=== PATIENT | male | born 1955 | race Caucasian/White ===

== ENCOUNTER 2020-10-06 18:01 | Inpatient (IN) ==
--- NOTE | 2020-10-06 18:37 | Emergency Department Note ---
HPI General Chief complaint: Weakness Stated complaint: WEAKNESS Time Seen by Provider: 10/06/20 18:33 Source: patient and RN notes reviewed Mode of arrival: EMS Limitations: no limitations History of Present Illness HPI Narrative: Narrative: Presents to room T2 for evaluation of hypotension, chills and neutropenia. The patient has a history of end-stage renal disease and diabetes. He reports that 3 days ago he developed chills with generalized weakness nausea and diarrhea during dialysis. He states throughout the weekend his symptoms of actually improved somewhat but when he presented for evaluation today an outside facility he was noted to be hypotensive with a reported blood pressure of 70/40. The patient was noted to be neutropenic with a white blood cell count of 1.4 and an ANC of 780. The patient was also noted to have an elevated lactic at 2.7. The patient was treated with IV fluid bolus, blood cultures and cefepime and vancomycin. Chest x-ray was obtained which is reported to be normal. The patient has not been able to provide a urine sample yet. The patient was transferred here for higher level of care. Hospitalist had requested the patient be evaluated in the emergency department prior to admission. Related Data Allergies Allergy/AdvReac Type Severity Reaction Status Date / Time codeine AdvReac Intermediate Vomiting Verified 10/06/20 18:05 hydrocodone AdvReac Intermediate Vomiting Verified 10/06/20 18:05 Review of Systems ROS ROS Narrative: Narrative: All systems ED: reviewed and negative except as stated. FORMERLY [facility], 1928–1983 Narrative Patient History Narrative: Narrative: Medical/Surgical/Family History All Active Problems (Updated 10/06/20 @ 18:43 by Saleem Chau MD) Sepsis (Acute) Neutropenia (Acute) Acute hypotension (Acute) Social History Smoking Status: Never smoker Exam Narrative Narrative: Narrative: General Limitations: no limitations General appearance: Present alert and in no apparent distress Head Head: Present atraumatic, normocephalic and normal inspection Eye Eye: Present normal appearance and EOMI; Absent conjunctival injection ENT ENT: Present normal exam and mucous membranes moist Neck Neck: Present normal inspection and trachea midline Respiratory Respiratory: Present normal lung sounds bilaterally; Absent respiratory distress Cardiovascular Cardiovascular: Present regular rate, normal rhythm and normal heart sounds Adbominal Abdominal: Present soft; Absent distention, tenderness, guarding and rebound Extremities Extremities: Present normal inspection; Absent tenderness Back Back: Present normal inspection; Absent tenderness Neurological Neurological: Present alert, oriented X3 and CN II-XII intact; Absent motor sensory deficit Psychiatric Psychiatric: Present normal affect and normal mood Skin Skin: Present warm (WNL) and dry; Absent rash Course Vital Signs Vital signs: Vital Signs Temperature 98.5 F 10/06/20 18:01 Pulse Rate 64 10/06/20 18:01 Respiratory Rate 18 10/06/20 18:01 Pulse Oximetry (%) 99 10/06/20 18:01 Temperature 98.5 F 10/06/20 18:01 Pulse Rate 64 10/06/20 18:01 Respiratory Rate 18 10/06/20 18:01 Pulse Oximetry (%) 99 10/06/20 18:01 [facility] MDM Narrative Medical decision making narrative: Narrative:The patient arrives in the emergency department in no acute distress. His exam is benign. His vital signs have normalized and blood pressure specifically has improved. He is in no acute distress at the time of my evaluation and is denying any complaints. I discussed the case with the admitting hospitalist. Will attempt to obtain a urinalysis. Hospitalist accepts the patient for admission. He has requested I order a CT scan without contrast of the chest. Medical Records Medical records reviewed: Yes I reviewed the patient's medical records. Lab Data Lab results reviewed: Yes I reviewed the patient's lab results. Rhythm Strip Data Rhythm Strip Rate: 65 Interpretation: normal sinus Pulse Oximetry Data Pulse Ox %: 99 Interpretation: normal Discharge Plan Patient/Caregiver Discharge Instructions Pt seen by FOOD ORDER DELIVERY RUNNER/PA only: No Clinical Impression: Sepsis, Neutropenia, Acute hypotension Patient Disposition: Xfer As Inpt ([facility]) Follow up with: Nemesio Tamayo [Primary Care Provider] -
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
--- NOTE | 2020-10-06 21:54 | Internal Med History&Physical ---
HPI History of Present Illness Patient information: Note initiated : 10/06/20 at 9:47 pm Service Date, if different from initiated Date: [] Patient: Singh Singh a 65 y/o M admitted on for weakness. Chief Complaint: Weakness, chills, nausea vomiting diarrhea History of present illness: Mr. Singh is a 65 year old M who lives at [facility] and carries a complex past medical history of CABG/type 1 diabetes/history of pleural and pericardial effusion/ESRD on HD currently on transplant list who presented to [facility] with 4 days onset of fever chills, nausea vomiting and diarrhea. Symptoms started immediately after dialysis on Tuesday with shaking chills that continued through Tuesday and Tuesday with profound weakness/fatigue to the point patient could barely get out of bed. Initial work-up at [place] was consistent with neutropenia of 1.8 along with systolics 70/40. Patient was started on antibiotic coverage after cultures were drawn. Crystalloids were administered. He also missed his dialysis today due to profound weakness and above symptoms. Following crystalloids patient's blood pressure improved to 106 x 45. Case was discussed with nephrology and recommended transfer to tertiary center. Patient was then transferred to [facility] ER. He underwent chest abdomen pelvis imaging and received crystalloids. Patient started feeling a lot better and remained lucid afebrile. No further episode of diarrhea. Covid test negative. Blood cultures were drawn Hospitalist service was consulted for admission At the time of my evaluation patient is alert and oriented. He denies fever, rash, fistula site pain, lightheadedness dizziness. He endorses to weakness/diarrhea and occasional shaking chills starting Tuesday following dialysis. However denies fall or seizure, cough, productive sputum. He missed dialysis today due to worsening weakness. He endorses of diarrhea x2 days Review of systems 10 point review system was performed and is negative except for 1 discussed above . Past medical history CAD last admission September 2019 CABG. cardiac cath in 2017 History of peritonitis 2018 T1DM Diabetic retinopathy History of CVA History of mild depression Hypothyroidism HLD Severe obstructive sleep apnea not using CPAP due to tolerance issue ESRD on HD, previously on peritoneal dialysis Family history CKD mother CAD/prostate cancer father Family history of HTN and diabetes Sister asthma Social history Quit tobacco 2016 Lives in [facility] All Active Problems Sepsis (Acute) Neutropenia (Acute) Acute hypotension (Acute) MEDS/ALLERGIES Home Medications and Allergies Home Medications Medication Instructions Recorded Confirmed Type Auryxia 4 g PO DAILY 10/07/20 10/07/20 History B complex-vitamin C-folic acid 1 tab PO QDAY 10/07/20 10/07/20 History [Folbee Plus] Novolog U-100 Insulin aspart See Rx Instructions .ROUTE .COMPLEX 10/07/20 10/07/20 History aspirin [Lou Chewable Aspirin] 81 mg PO DAILY 10/07/20 10/07/20 History atorvastatin 40 mg PO HS 10/07/20 10/07/20 History brimonidine 1 drp OPHTHALMIC (EYE) BID 10/07/20 10/07/20 History brinzolamide 1 drp OPHTHALMIC (EYE) BID 10/07/20 10/07/20 History cholecalciferol (vitamin D3) 125 mcg PO DAILY 10/07/20 10/07/20 History escitalopram oxalate [Lexapro] 10 mg PO BID 10/07/20 10/07/20 History ezetimibe 10 mg PO DAILY 10/07/20 10/07/20 History gabapentin 600 mg PO BID 10/07/20 10/07/20 History latanoprost 1 drp OPHTHALMIC (EYE) HS 10/07/20 10/07/20 History levothyroxine 75 mcg PO DAILY 10/07/20 10/07/20 History midodrine 5 mg PO PRN PRN 10/07/20 10/07/20 History torsemide 100 mg PO DAILY 10/07/20 10/07/20 History Allergies Allergy/AdvReac Type Severity Reaction Status Date / Time codeine AdvReac Intermediate Vomiting Verified 10/06/20 18:05 hydrocodone AdvReac Intermediate Vomiting Verified 10/06/20 18:05 EXAM Constitutional Vitals: Temp Pulse Resp BP Pulse Ox 98.5 F 65 12 106/57 96 10/06/20 18:01 10/06/20 21:39 10/06/20 20:31 10/06/20 21:39 10/06/20 21:39 Minimal pallor, alert oriented Head normocephalic Oral cavity moist No ear or nose discharge Eye no subconjunctival pallor, movement symmetrical S1-S2 regular Nonlabored breathing Left upper extremity fistula no tenderness normal bruit Nondistended nontender abdomen Lower extremity no cyanosis clubbing or joint swelling Skin no suspicious lesion Psych anxious but no hallucination Neuro normal higher function on limited neuro exam, GCS 15 A/P Narrative A/P Narrative: * Sepsis with hypotension unclear etiology. Negative imaging imaging, blood cultures awaited. Continue empiric broad-spectrum antibiotic coverage including cefepime/vancomycin and de-escalate based on culture results and clinical response. * Profound neutropenia-Covid negative. Rule out influenza. High probably sepsis induced. Admit to ICU * ESRD on hemodialysis nephrology consulted * Type I DM continue basal prandial insulin/CC diet * Hyperlipidemia on statin/Zetia * Glaucoma on brinzolamide/travoprost/brimonidine * Anxiety started on escitalopram * Neuropathy on gabapentin * Hypothyroidism on thyroxine * Full code * Prophylaxis Heparin Plan * ICU admission * Sepsis management per guidelines, aggressive/evaluation/pancultures/broad antibiotic coverage * Vasopressors if indicated to maintain MAP at goal * Nephrology consult for hemodialysis * Pre-existing medical condition management home meds * PT OT nutrition support Time Spent With Patient Time: Critical time spent on evaluation/management of severe sepsis with hypotension/neutropenia in excess of 35 minutes in addition to time spent on history and physical
[2020-10-07] MEDS ORDERED: POLYETHYLENE GLYCOL 3350 17 GM PACKET PO PRN (01:31)
[2020-10-07] MEDS ORDERED: DEXTROSE 50% 50 ML VIAL IV PRN (01:31)
[2020-10-07] MEDS ORDERED: NOREPINEPHRINE BITARTRATE 8 MG in 0.9 % SODIUM CHLORIDE 242 ML IV PRN (01:31)
[2020-10-07] MEDS ORDERED: ACETAMINOPHEN 325 MG TABLET PO PRN (01:31)
[2020-10-07] MEDS ORDERED: DEXTROSE 31 GM ORAL.SUSP PO PRN (01:31)
[2020-10-07] MEDS ORDERED: POTASSIUM CHLORIDE 40 MEQ in DEXTROSE 5% IN WATER 500 ML IV PRN (01:31)
[2020-10-07] MEDS ORDERED: MAGNESIUM SULFATE 2 GM/50 ML BAG IV PRN (01:31)
[2020-10-07] MEDS ORDERED: ACETAMINOPHEN 650 MG/65 ML BAG IV PRN (01:31)
[2020-10-07] MEDS ORDERED: VANCOMYCIN PER PHARMACY IV SCH (01:31)
[2020-10-07] MEDS ORDERED: CEFEPIME 2 GM in DEXTROSE 5% IN WATER 50 ML IV SCH (01:31)
[2020-10-07] MEDS ORDERED: MELATONIN 3 MG TABLET PO PRN (01:31)
[2020-10-07] MEDS ORDERED: BISACODYL 10 MG SUPP.RECT PR PRN (01:31)
[2020-10-07] MEDS ORDERED: ONDANSETRON 4 MG ODT TABLET SL PRN (01:31)
[2020-10-07] MEDS ORDERED: ONDANSETRON 4 MG/2 ML VIAL IV PRN (01:31)
[2020-10-07] MEDS ORDERED: CEFEPIME 1 GM VIAL ONE (01:36)
[2020-10-07] MEDS ORDERED: IPRATROPIUM/ALBUTEROL 3 ML AMPUL.NEB NEB ONE (02:45)
[2020-10-07 03:39] LABS: Basophils # (Auto) 0.02 K/mcL (0.00-0.20); Eosinophils # (Auto) 0.45 K/mcL (0.00-0.70); Eosinophils % (Auto) 21.4 % (0.0-7.0); Hematocrit 29.5 % (41.0-55.0); Lymphocytes # (Auto) 0.69 K/mcL (1.50-4.80); Lymphocytes % (Auto) 32.9 % (15.0-49.0); Mean Corpuscular HGB Conc 33.9 g/dL (31.0-36.0); Mean Platelet Volume 11.1 fL (7.4-10.4); Monocytes # (Auto) 0.25 K/mcL (0.10-0.90); Monocytes % (Auto) 11.9 % (1.0-12.0); Neutrophils % (Auto) 32.8 % (38.0-78.0); Platelet Count 107 K/mcL (140-440); RBC 2.81 M/mcL (4.50-5.90); Red Cell Distribution Width 13.3 % (11.5-14.5); WBC 2.1 K/mcL (4.5-11.0)
[2020-10-07 04:10] LABS: ALT/SGPT 42 U/L (<40); AST/SGOT 66 U/L (<40); Albumin 3.5 gm/dL (3.2-5.2); Albumin/Globulin Ratio 1.3 (1.0-2.3); Alkaline Phosphatase 109 U/L (39-117); Bilirubin,Direct < 0.2 mg/dL (0-0.3); Bilirubin,Total 0.4 mg/dL (0.1-1.0); Blood Urea Nitrogen 92 mg/dL (8-23); Calcium 8.3 mg/dL (8.6-10.4); Carbon Dioxide 23 mmol/L (22-30); Chloride 88 mmol/L (96-108); Globulin 2.8 gm/dL (2.2-3.7); Glomerular Filtration Rate 4; Glucose 175 mg/dL (70-105); Lactate Dehydrogenase 954 U/L (135-225); Phosphorous 6.2 mg/dL (2.5-4.5); Triglycerides 411 mg/dL (<150)
[2020-10-07] MEDS: 0.9 % SODIUM CHLORIDE 250 ML IV SCH ×2 (05:06→14:53)
[2020-10-07] MEDS: 0.9 % SODIUM CHLORIDE 10 ML SYRINGE IV SCH ×3 (05:50→21:43)
[2020-10-07] MEDS ORDERED: VANCOMYCIN 1,500 MG in 0.9 % SODIUM CHLORIDE 500 ML IV ONE (08:00)
--- NOTE | 2020-10-07 08:10 | Internal Med Progress Note ---
SUBJECTIVE Subjective Patient information: Note initiated : 10/07/20 at 8:08 am Service Date, if different from initiated Date: [] Patient: Singh Singh a 65 y/o M admitted on 10/07/20 for weakness. Chief Complaint: [] Interval history: Mr. Singh is a 65 year old M with history of CABG/type 1 diabetes/history of purulent pericardial effusion/ESRD on hemodialysis currently on transplant list who presented to [facility] with 4 days onset of fever chills, nausea vomiting and diarrhea . Initial work-up was consistent with neutropenia of 1.8 along with systolics 70/40. Patient was started on antibiotic coverage after cultures were drawn. Nephrology was consulted as patient has missed his dialysis today. Following crystalloids patient's blood pressure improved to 106 x 45. Case was discussed with nephrology and recommended transfer to tertiary center. Patient was subsequently transferred to [facility] ER. Patient with continued antibiotics along with crystalloids. Patient started feeling a lot better and remained lucid. No further episode of diarrhea. Covid test negative. CT chest abdomen pelvis no acute process Hospitalist service was consulted At the time of my evaluation patient is alert and oriented. He denies fever, rash, fistula site pain, lightheadedness dizziness. He endorses to weakness/diarrhea and occasional shaking chills starting Tuesday following dialysis. However denies fall or seizure, cough, productive sputum. He missed dialysis today due to worsening weakness 10/07-patient doing better this morning. Not requiring pressors. Hemodynamic stable with systolics of 100. ANC remains critical at 680 with eosinophil at 21%, cultures negative so far. Hemodialysis today. Check peripheral blood smear. Constitutional Vitals: Vital Signs Temp Pulse Resp BP Pulse Ox 99.2 F H 73 16 105/50 92 10/07/20 03:40 10/07/20 04:16 10/07/20 04:16 10/07/20 04:16 10/07/20 04:16 Period Temp Pulse Resp BP Sys/South Pulse Ox Last 24 Hr 98.5 F-99.2 F 61-73 04-20 105-130/48-66 92-99 Intake and Output 10/06/20 10/07/20 10/07/20 21:59 05:59 13:59 Intake Total 287 Balance 287 Weight 113.398 kg 115.439 kg Alert oriented Nonlabored breathing Left upper extremity fistula site no tenderness or pain Nondistended abdomen Intake & Output: Intake & Output 10/06/20 10/07/20 10/07/20 21:59 05:59 13:59 Intake Total 287 Balance 287 Weight 113.398 kg 115.439 kg Intake: IV 50 Maxipime 2 gm In Dextrose 5% in 50 Water 50 ml @ 100 mls/hr IV Q12H VIANEY Rx#:[id number] Oral 237 Other: Meal Egg salad sandwich Percent of Meal Consumed 100% Feeding Ability Independent Stool Size Moderate Stool Color Brown Stool Consistency Loose OBJ DATA Labs CBC & Chem 7: 10/07/20 02:00 10/07/20 02:00 Labs: Abnormal Lab Results 10/07/20 10/07/20 10/07/20 02:00 02:00 02:00 WBC 2.1 L RBC 2.81 L Hgb 10.0 L Hct 29.5 L MCV 105.0 H MCH 35.6 H Plt Count 107 L MPV 11.1 H Neut % (Auto) 32.8 L Eos % (Auto) 21.4 H Lymph # (Auto) 0.69 L Absolute Neutrophils 0.69 L* ESR Sodium 130 L Chloride 88 L Anion Gap 19.0 H BUN 92 H Creatinine 12.6 H* Glucose 175 H Calcium 8.3 L Phosphorus 6.2 H* AST 66 H ALT 42 H Lactate Dehydrogenase 954 H C-Reactive Protein Triglycerides 411 H Procalcitonin 2.12 H 10/07/20 10/07/20 02:00 02:00 WBC RBC Hgb Hct MCV MCH Plt Count MPV Neut % (Auto) Eos % (Auto) Lymph # (Auto) Absolute Neutrophils ESR 62 H Sodium Chloride Anion Gap BUN Creatinine Glucose Calcium Phosphorus AST ALT Lactate Dehydrogenase C-Reactive Protein 17.80 H Triglycerides Procalcitonin Meds: Medications Acetaminophen (Acetaminophen 325 Mg Tablet) 650 mg PO Q4-6HP PRN; Protocol PRN Reason: Per Pain Protocol/Fever > 101 Bisacodyl (Bisacodyl 10 Mg Supp.Rect) 10 mg MI Q2-3DAYS PRN PRN Reason: Constipation Dextrose (Dextrose 50% 50 Ml Vial) 0 ml IV UD PRN PRN Reason: Hypoglycemia Diagnostic Test (Pha) (Accu-Chek 1 Each Strip) 1 each FS ACHS VIANEY Docusate Sodium (Docusate Sodium 100 Mg Capsule) 100 mg PO BID [facility] Glucose (Dextrose 31 Gm Oral.Susp) 15 gm PO PRN PRN PRN Reason: Hypoglycemia Heparin Sodium (Porcine) (Heparin 5,000 Unit/Ml Vial) 5,000 unit SQ Q12 VIANEY Cefepime HCl 2 gm/ Dextrose 50 mls @ 100 mls/hr IV Q12H [facility]; Protocol Last Infusion: 10/07/20 04:11 Dose: Infused Documented by: Potassium Chloride 40 meq/ (Dextrose) 520 mls @ 130 mls/hr IV UD PRN PRN Reason: K+ = or < 3.5 Acetaminophen (Ofirmev) 650 mg in 65 mls @ 130 mls/hr IV Q6HP PRN; Protocol PRN Reason: Per Pain Protocol/Fever > 101 Magnesium Sulfate (Magnesium Sulfate) 2 gm in 50 mls @ 50 mls/hr IV UD PRN PRN Reason: MG = or < 1.7 Norepinephrine Bitartrate 8 mg (/ Sodium Chloride) 250 mls @ 18.75 mls/hr IV Q14H PRN; Protocol PRN Reason: Keep MAP over 65 Sodium Chloride (Sodium Chloride 0.9%) 250 mls @ 20 mls/hr IV .[id number] [facility] Last Admin: 10/07/20 05:06 Dose: Not Given Documented by: Vancomycin HCl 1,500 mg/ (Sodium Chloride) 500 mls @ 333.3 mls/hr IV ONCE ONE Stop: 10/07/20 09:30 Insulin Human Lispro (Insulin Lispro 1 Unit/0.01 Ml Unit) 0 unit SQ ACHS [facility]; Protocol Melatonin (Melatonin 3 Mg Tablet) 3 mg PO HSP PRN PRN Reason: Insomnia Ondansetron HCl (Ondansetron 4 Mg Odt Tablet) 4 mg SL Q4-6HP PRN; Protocol PRN Reason: Nausea And Vomiting Ondansetron HCl (Ondansetron 4 Mg/2 Ml Vial) 4 mg IV Q4-6HP PRN; Protocol PRN Reason: Nausea And Vomiting Polyethylene Glycol (Polyethylene Glycol 3350 17 Gm Packet) 17 gm PO DAILYP PRN PRN Reason: Constipation Senna/Docusate Sodium (Sennosides/Docusate Sodium 1 Tab Tablet) 1 tab PO HS [facility] Sodium Chloride (0.9 % Sodium Chloride 10 Ml Syringe) 10 ml IV Q8 [facility] Last Admin: 10/07/20 05:50 Dose: Not Given Documented by: Vancomycin HCl (Vancomycin Per Pharmacy) 1 order IV UD [facility]; Protocol A/P Narrative A/P Narrative: * Sepsis with hypotension unclear etiology. Negative imaging imaging, blood cultures awaited. Continue empiric broad-spectrum antibiotic coverage including cefepime/vancomycin and de-escalate based on culture results and clinical response. * Profound neutropenia-Covid negative. Rule out influenza. High probably sepsis induced. Admit to ICU * ESRD on hemodialysis nephrology consulted * Eosinophilia-check peripheral blood smear. Broad differential. Hypersensitivity versus hematological. Obtain prior blood work for baseline assessment * Type I DM continue basal prandial insulin/CC diet * Hyperlipidemia on statin/Zetia * Glaucoma on brinzolamide/travoprost/brimonidine * Anxiety started on escitalopram * Neuropathy on gabapentin * Hypothyroidism on thyroxine * Full code * Prophylaxis Heparin Plan * Continue antibiotic coverage * Await cultures * Vasopressors if indicated to maintain MAP at goal * HD per nephrology * Pre-existing medical condition management home meds * PT OT nutrition support Time Spent With Patient Time: Total time spent is greater than 50% in coordination of care (as documented) at patient's floor/unit and/or counseling patient: QUALITY VTE Deep Vein Thrombosis/Pulmonary Embolism Present on Admission: No
--- NOTE | 2020-10-07 08:13 | Cat Scan Report ---
History: Bacteremia with increased weakness TECHNIQUE: The patient was imaged without contrast from the thoracic inlet through the symphysis pubis at 2.5 mm intervals. Sagittal, coronal and axial MIPS images were created. The radiation exposure was limited using dose reduction technology. FINDINGS: CHEST: The patient has had a prior sternotomy with coronary bypass surgery. Large amount calcified plaque is present in the [place] band coronary arteries. The heart size is normal and there is no pericardial effusion. Aorta is normal in caliber and contains small amount of plaque. Dependent atelectasis is present posteriorly in both lower lobes. There are also bands of scar atelectasis in the inferior segment of lingula. Minor pleural thickening is present posteriorly in both lung bases, left greater than right. There are a few small reactive lymph nodes in the mediastinum which are 1 cm or smaller in size. No hilar adenopathy is detected. There several thin septations within the lumen of the distal trachea and mainstem bronchi. This is probably mucus. There is no narrowing of the lumen and no thickening of the wall of the airways. Abdomen and pelvis: Evaluation of abdominal organs without contrast is somewhat limited. The liver and spleen are normal in size and homogeneous. The gallbladder and bile ducts appear normal. There is no apparent mass or inflammation in the pancreas. The adrenals are normal and symmetric. There is atrophy in both kidneys with loss of renal parenchyma. There is no apparent mass or cyst in either kidney. No kidney stone is present. There is a moderate amount of atherosclerotic plaque in the renal arteries bilaterally. There is no hydronephrosis. Urinary bladder is incompletely distended but appears normal. Prostate is mildly enlarged. Seminal vesicles are relatively small. The bowel pattern is normal without evidence of inflammation mass or obstruction. There are no diverticula. The appendix is noninflamed. Inferior to the greater curvature of the stomach and anterior to the body of the pancreas there is a dense 1.4 x 1.8 cm calcification. There is no surrounding inflammation or mass. This incidental finding which may be from prior injury or inflammatory process. No abscess mass or adenopathy or ascites are present in the abdomen or pelvis. There are a couple small fat-containing hernias. One is located in the mid epigastrium below the xiphoid. It measures 1.8 cm in diameter. There is also a small left inguinal hernia containing fat which measures 3 cm. Aorta is normal caliber and there are scattered plaques in the aorta celiac, superior mesenteric and iliac arteries.2 moderate arthritis is present in the facet joints at L4-5 and L5-S1. IMPRESSION: No evidence of infection in the chest abdomen or pelvis Mild atelectasis in both lung bases Mucus within the trachea and bronchi Atrophy of both kidneys Atherosclerotic disease predominantly involving the heart Interpreted and Authenticated by: Octavio Hernandez 10/07/20
[2020-10-07] MEDS ORDERED: MIDODRINE HCL 10 MG TABLET PO PRN (08:20)
[2020-10-07] MEDS: INSULIN LISPRO 1 UNIT/0.01 ML UNIT SQ SCH ×4 (08:36→20:22)
[2020-10-07] MEDS: DOCUSATE SODIUM 100 MG CAPSULE PO SCH ×2 (08:39→20:22)
[2020-10-07] MEDS ORDERED: AURYXIA 210 MG PO PRN (08:41)
[2020-10-07] MEDS ORDERED: LEVOTHYROXINE 50 MCG TABLET PO SCH (09:00)
[2020-10-07] MEDS: BRINZOLAMIDE 1% LEFT EYE SCH ×2 (09:09→20:26)
[2020-10-07] MEDS: OPTHALMIC LEFT EYE SCH ×2 (09:09→20:26)
[2020-10-07] MEDS: AURYXIA 210 MG PO SCH ×2 (09:17→17:15)
[2020-10-07] MEDS: ESCITALOPRAM 20 MG TABLET PO SCH ×2 (09:17→20:22)
[2020-10-07] MEDS: GABAPENTIN 300 MG CAPSULE PO SCH ×2 (09:17→20:22)
[2020-10-07] MEDS: ASPIRIN 81 MG TAB.CHEW PO SCH (09:17)
[2020-10-07] MEDS: HEPARIN 5,000 UNIT/ML VIAL SQ SCH ×2 (09:17→20:22)
--- NOTE | 2020-10-07 10:04 | Consultation ---
DATE OF CONSULTATION: 10/07/2020 REFERRING PHYSICIAN: Lucio Lemus MD REASON FOR CONSULTATION: End-stage renal disease. HISTORY OF PRESENT ILLNESS: The patient is a 65-year-old gentleman with past medical history significant for type 1 diabetes and end-stage renal disease. He was initially on peritoneal dialysis for 3 years and subsequently switched over to hemodialysis because of the failure of the peritoneum. He had coronary artery disease with a CABG in the last, I believe in the fall of last year, and now active on the transplant list. The patient had his regular dialysis treatment last Tuesday, but immediately after starting the dialysis, he started having chills. He had a procedure done about a week ago at [facility] label cutter by Dr. Patrick. He is not sure if he had a stent placed or not at that time. He still has the sutures from that. Subsequent to having chills over the weekend, he did not feel well. He continued to have neck pain and had chills on and off. He was lightheaded and dizzy and had to go out in a wheelchair. His appetite has been poor. For these reasons, he went to the local hospital. Subsequently, he was transferred to [facility]. His COVID test was negative. Blood cultures were drawn, but so far nothing is positive. PAST MEDICAL HISTORY: 1. Coronary artery disease with status post CABG in September of 2019. He also had heart catheterization in 2017. 2. History of peritonitis in 2018. 3. Type 1 diabetes mellitus. 4. Diabetic retinopathy, nephropathy and neuropathy. 5. History of cerebrovascular accident. 6. History of mild depression. 7. Hypothyroidism, on replacement. 8. Severe obstructive sleep apnea, not using CPAP because of the ___. 9. End-stage renal disease, on hemodialysis Mondays, Wednesdays, and Fridays. FAMILY HISTORY: There is chronic kidney disease in the mother, prostate cancer in the father. Family history of hypertension, diabetes and history of anemia. SOCIAL HISTORY: He is . Quit tobacco in 2016. Lives in [place]. MEDICATIONS: 1. Auryxia 1.5 grams 3 times daily. 2. Folbee Plus 1 tablet once daily. 3. NovoLog as needed. 4. Aspirin 81 mg once daily. 5. Atorvastatin 40 mg at night. 6. Brimonidine 1 drop ophthalmic twice daily. 7. Brinzolamide 1 ophthalmic twice daily. 8. Cholecalciferol 125 mcg daily. 9. Lexapro 10 mg twice daily. 10. Atomidine 10 mg daily. 11. Gabapentin 600 mg p.o. b.i.d. 12. Latanoprost eye drops, 2 at night. 13. Levothyroxine 75 mcg daily. 14. Midodrine 5 mg as needed. 15. Torsemide 20 mg daily. ALLERGIES: CODEINE, HYDROCODONE. REVIEW OF SYSTEMS: Ten systems were reviewed and as indicated in history of present illness. PHYSICAL EXAMINATION: GENERAL: On examination, alert, oriented, in no apparent distress. VITAL SIGNS: Blood pressures have been running 120-130s systolic with a diastolic in the 60s. Pulse rates have been in the 60s, respiratory rate of 18. HEENT: NC/AT. Pupils are reactive. External canal: Tympanic membrane appears normal. Oral cavity appears normal. NECK: Supple. No jugular venous distension. No lymphadenopathy. No thyromegaly. CHEST: Decreased air entry bilaterally. No rales or rhonchi heard. CARDIOVASCULAR: S1, S2 heard. No S3 or S4. There is a 2/6 systolic murmur. ABDOMEN: Soft, nontender, no organomegaly, positive bowel sounds. No mass, no rebound. EXTREMITIES: No evidence of edema. LABORATORY DATA: White count 2.1, hemoglobin 10.0, platelet count 107. Sodium 130, potassium 4.9, chloride 88, CO2 23, BUN 92 with a creatinine of 12.6, phosphorus of 6.2. ASSESSMENT AND PLAN: 1. End-stage renal disease, on hemodialysis. He missed his dialysis treatment on Tuesday. We will dialyze him today. 2. Sepsis. Possibly, the source appears to be his fistula. He had an access procedure done about a week ago by Dr. Patrick. He is currently on antibiotics. We will get an ultrasound of the fistula and also get an echocardiogram to rule out any evidence of endocarditis. We hopefully will figure out the source and continue the treatment with antibiotics as an outpatient. 3. Multiple other problems--management per hospitalist. RAJENDRA:meka Job ID: [id number] Doc ID: [id number] Rambo Collado MD
--- NOTE | 2020-10-07 12:08 | Ultrasound Report ---
History: Renal dialysis patient with abscess or thrombus in or adjacent to the arterial venous fistula in the left arm FINDINGS: There is a surgically created arteriovenous fistula in the distal portion of the left upper arm between the brachial artery and cephalic vein. The fistula is patent. At the anastomosis, the peak systolic flow velocity is 400 cm/s. Proximally to the anastomosis the brachial artery has a peak systolic flow velocity 187 cm/s. Distal to the anastomosis the artery has a flow velocity 177 cm/s. Flow velocities in the cephalic vein range from 42 to 67 cm/s. There is no evidence of thrombosis. No abscess or hematoma are seen in the arm. Normal flow is seen in the left internal jugular and proximal subclavian vein. There is a segment of the distal subclavian vein which is obscured by overlying clavicle. Axillary vein is normal. IMPRESSION: Normal exam without evidence of thrombosis or significant stenosis in the AV fistula. No evidence of an abscess or hematoma in the arm Interpreted and Authenticated by: Octavio Hernandez 10/07/20
--- NOTE | 2020-10-07 12:58 | Internal Med Progress Note ---
SUBJECTIVE Subjective Patient information: Note initiated : 10/08/20 at 12:49 pm Service Date, if different from initiated Date: [] Patient: Singh Singh a 65 y/o M admitted on 10/07/20 for weakness. Chief Complaint: [] Interval history: Mr. Singh is a 65 year old M with history of CABG/type 1 diabetes/history of purulent pericardial effusion/ESRD on hemodialysis currently on transplant list who presented to [facility] with 4 days onset of fever chills, nausea vomiting and diarrhea . Initial work-up was consistent with neutropenia of 1.8 along with systolics 70/40. Patient was started on antibiotic coverage after cultures were drawn. Nephrology was consulted as patient has missed his dialysis today. Following crystalloids patient's blood pressure improved to 106 x 45. Case was discussed with nephrology and recommended transfer to tertiary center. Patient was subsequently transferred to [facility] ED where he was treated with antibiotics along with crystalloids. Patient started feeling a lot better and remained lucid. No further episode of diarrhea. Covid test negative. CT chest abdomen pelvis no acute process. The patient was admitted for further management. 10/07-patient doing better this morning. Not requiring pressors. Hemodynamic stable with systolics of 100. ANC remains critical at 680 with eosinophil at 21%, cultures negative so far. Hemodialysis today. Check peripheral blood smear. 10/08-ANC slightly modestly improved, no source of infection identified yet but patient feels much better now, continued on IV antibiotics, vitamin B12 elevated, platelets declining-held heparin SQ. ECHO pending. US fistula did now show any possible infectious source. Head: Atraumatic, normal inspection. Eyes: normal appearance, no scleral icterus. Neck: full ROM Respiratory: no respiratory distress. Cardiovascular: normal rate and rhythm, S1, S2. GI/Abdominal: soft, nontender, no guarding. Extremities: full range of motion, nontender, left AV fisula. Neurological: CN II-XII intact, intact motor, intact sensation. Psychiatric: normal mood. Skin: warm, normal color Constitutional Vitals: Vital Signs Temp Pulse Resp BP Pulse Ox 98.9 F 73 24 H 124/52 96 10/07/20 08:02 10/07/20 08:02 10/07/20 08:02 10/07/20 08:02 10/07/20 08:02 Period Temp Pulse Resp BP Sys/South Pulse Ox Last 24 Hr 98.5 F-99.2 F 61-74 11-24 105-131/46-66 92-99 Intake and Output 10/06/20 10/07/20 10/07/20 21:59 05:59 13:59 Intake Total 287 980 Balance 287 980 Weight 113.398 kg 115.439 kg Intake & Output: Intake & Output 10/06/20 10/07/20 10/07/20 21:59 05:59 13:59 Intake Total 287 980 Balance 287 980 Weight 113.398 kg 115.439 kg Intake: IV 50 500 Maxipime 2 gm In Dextrose 5% in 50 Water 50 ml @ 100 mls/hr IV Q12H [facility] Rx#:[id number] Vancomycin 1,500 mg In Sodium 500 Chloride 0.9% 500 ml @ 333.3 mls/hr IV ONCE ONE Rx#: [id number] Oral 237 480 Other: Meal Egg salad sandwich Breakfast Percent of Meal Consumed 100% 100% Feeding Ability Independent Independent Stool Size Moderate Stool Color Brown Stool Consistency Loose OBJ DATA Labs CBC & Chem 7: 10/08/20 05:45 10/08/20 05:45 Labs: Abnormal Lab Results 10/07/20 10/07/20 10/07/20 02:00 02:00 02:00 WBC 2.1 L RBC 2.81 L Hgb 10.0 L Hct 29.5 L MCV 105.0 H MCH 35.6 H Plt Count 107 L MPV 11.1 H Neut % (Auto) 32.8 L Eos % (Auto) 21.4 H Lymph # (Auto) 0.69 L Absolute Neutrophils 0.69 L* ESR Sodium 130 L Chloride 88 L Anion Gap 19.0 H BUN 92 H Creatinine 12.6 H* Glucose 175 H Calcium 8.3 L Phosphorus 6.2 H* AST 66 H ALT 42 H Lactate Dehydrogenase 954 H C-Reactive Protein Triglycerides 411 H Procalcitonin 2.12 H 10/07/20 10/07/20 02:00 02:00 WBC RBC Hgb Hct MCV MCH Plt Count MPV Neut % (Auto) Eos % (Auto) Lymph # (Auto) Absolute Neutrophils ESR 62 H Sodium Chloride Anion Gap BUN Creatinine Glucose Calcium Phosphorus AST ALT Lactate Dehydrogenase C-Reactive Protein 17.80 H Triglycerides Procalcitonin Meds: Medications Acetaminophen (Acetaminophen 325 Mg Tablet) 650 mg PO Q4-6HP PRN; Protocol PRN Reason: Per Pain Protocol/Fever > 101 Aspirin (Aspirin 81 Mg Tab.Chew) 81 mg PO DAILY [facility] Last Admin: 10/07/20 09:17 Dose: 81 mg Documented by: Atorvastatin Calcium (Atorvastatin 40 Mg Tablet) 40 mg PO HS [facility] Bisacodyl (Bisacodyl 10 Mg Supp.Rect) 10 mg GA Q2-3DAYS PRN PRN Reason: Constipation Dextrose (Dextrose 50% 50 Ml Vial) 0 ml IV UD PRN PRN Reason: Hypoglycemia Diagnostic Test (Pha) (Accu-Chek 1 Each Strip) 1 each FS ACHS [facility] Last Admin: 10/07/20 12:14 Dose: 1 each Documented by: Docusate Sodium (Docusate Sodium 100 Mg Capsule) 100 mg PO BID [facility] Last Admin: 10/07/20 08:39 Dose: Not Given Documented by: Escitalopram Oxalate (Escitalopram 20 Mg Tablet) 10 mg PO BID [facility] Last Admin: 10/07/20 09:17 Dose: 10 mg Documented by: Gabapentin (Gabapentin 300 Mg Capsule) 300 mg PO BID [facility] Last Admin: 10/07/20 09:17 Dose: 300 mg Documented by: Glucose (Dextrose 31 Gm Oral.Susp) 15 gm PO PRN PRN PRN Reason: Hypoglycemia Heparin Sodium (Porcine) (Heparin 5,000 Unit/Ml Vial) 5,000 unit SQ Q12 [facility] Last Admin: 10/07/20 09:17 Dose: 5,000 unit Documented by: Potassium Chloride 40 meq/ (Dextrose) 520 mls @ 130 mls/hr IV UD PRN PRN Reason: K+ = or < 3.5 Acetaminophen (Ofirmev) 650 mg in 65 mls @ 130 mls/hr IV Q6HP PRN; Protocol PRN Reason: Per Pain Protocol/Fever > 101 Magnesium Sulfate (Magnesium Sulfate) 2 gm in 50 mls @ 50 mls/hr IV UD PRN PRN Reason: MG = or < 1.7 Norepinephrine Bitartrate 8 mg (/ Sodium Chloride) 250 mls @ 18.75 mls/hr IV Q14H PRN; Protocol PRN Reason: Keep MAP over 65 Sodium Chloride (Sodium Chloride 0.9%) 250 mls @ 20 mls/hr IV .[id number] [facility] Last Admin: 10/07/20 05:06 Dose: Not Given Documented by: Cefepime HCl 0.5 gm/ Dextrose 50 mls @ 100 mls/hr IV DAILY@1800 [facility] Insulin Human Lispro (Insulin Lispro 1 Unit/0.01 Ml Unit) 0 unit SQ ACHS [facility]; Protocol Last Admin: 10/07/20 12:15 Dose: Not Given Documented by: Latanoprost (Latanoprost Ophth Drops 2.5ml Bottle) 1 gtt OU HS [facility] Levothyroxine Sodium (Levothyroxine 75 Mcg Tablet) 75 mcg PO QAMAC [facility] Melatonin (Melatonin 3 Mg Tablet) 3 mg PO HSP PRN PRN Reason: Insomnia Midodrine (Midodrine Hcl 10 Mg Tablet) 5 mg PO DAILYP PRN PRN Reason: SBP < 90 Ondansetron HCl (Ondansetron 4 Mg Odt Tablet) 4 mg SL Q4-6HP PRN; Protocol PRN Reason: Nausea And Vomiting Ondansetron HCl (Ondansetron 4 Mg/2 Ml Vial) 4 mg IV Q4-6HP PRN; Protocol PRN Reason: Nausea And Vomiting Auryxia 210 Mg (Tablet) 1 dose PO TIDCC [facility] Last Admin: 10/07/20 09:17 Dose: 1 dose Documented by: Brimonidine 0.2% (Ophthalmic Solution) 1 dose OU BID [facility] Last Admin: 10/07/20 09:17 Dose: 1 dose Documented by: Brinzolamide 1 % Drops Opthalmic Suspension 1 dose LEFT EYE BID [facility] Last Admin: 10/07/20 09:09 Dose: Not Given Documented by: Auryxia 210 Mg (Tablet) 1 dose PO DAILYP PRN PRN Reason: WITH SNACKS Insulin Pump - Insulin Aspart - Novolog 1 dose SC DAILY [facility] Polyethylene Glycol (Polyethylene Glycol 3350 17 Gm Packet) 17 gm PO DAILYP PRN PRN Reason: Constipation Senna/Docusate Sodium (Sennosides/Docusate Sodium 1 Tab Tablet) 1 tab PO HS [facility] Sodium Chloride (0.9 % Sodium Chloride 10 Ml Syringe) 10 ml IV Q8 [facility] Last Admin: 10/07/20 05:50 Dose: Not Given Documented by: Vancomycin HCl (Vancomycin Per Pharmacy) 1 order IV UD [facility]; Protocol A/P Narrative A/P Narrative: Assessment: 65 year old M with history of CABG/type 1 diabetes/history of purulent pericardial effusion/ESRD on hemodialysis currently on transplant list who presented to [facility] with 4 days onset of fever, chills, nausea, vomiting and diarrhea and subsequently transferred to [facility] ED where he was found to be neutropenic and hypotensive. The patient was started on broad spectrum antibiotics and IV fluid for possible sepsis. #Possible sepsis but unclear source. Negative imaging, blood cultures-NGTD Continue empiric broad-spectrum antibiotic coverage including cefepime/vancomycin and de-escalate based on culture results and clinical response. #Neutropenia-Covid negative, influenza negative. Possibly secondary to sepsis. #Elevated eosinophils - elevated percentage but normal total eosinophils, not sure what this means clinically #Pancytopenia - anemia likely related to ESRD but leukopenia and thrombocytopenia from other cause #Macrocytosis #ESRD on hemodialysis nephrology consulted #Type I DM continue basal prandial insulin/CC diet #Hyperlipidemia on statin/Zetia #Glaucoma on brinzolamide/travoprost/brimonidine #Anxiety started on escitalopram #Neuropathy on gabapentin #Hypothyroidism on thyroxine #Full code #Prophylaxis Heparin Plan Continue antibiotic coverage Await cultures Discuss antibiotic plan with ID if blood cultures do not grow organism. Vasopressors if indicated to maintain MAP at goal HD per nephrology Pre-existing medical condition management home meds PT OT nutrition support Time Spent With Patient Time: Total time spent is greater than 50% in coordination of care (as documented) at patient's floor/unit and/or counseling patient: QUALITY VTE Deep Vein Thrombosis/Pulmonary Embolism Present on Admission: No
[2020-10-07 17:27] LABS: Vancomycin,Random 20.6 ug/mL
[2020-10-07] MEDS ORDERED: CEFEPIME 1 GM VIAL IV SCH (18:00)
[2020-10-07] MEDS: LORATADINE 10 MG TABLET PO SCH (20:21)
[2020-10-07] MEDS: ATORVASTATIN 40 MG TABLET PO SCH (20:22)
[2020-10-07] MEDS: SENNOSIDES/DOCUSATE SODIUM 1 TAB TABLET PO SCH (20:23)
[2020-10-07] MEDS: CEFEPIME 0.5 GM in DEXTROSE 5% IN WATER 50 ML IV SCH (20:25)
[2020-10-07] MEDS: LATANOPROST OPHTH DROPS 2.5ML BOTTLE OU SCH (20:25)
[2020-10-07 23:08] LABS: Vancomycin,Random 12.5 ug/mL
[2020-10-08] MEDS: 0.9 % SODIUM CHLORIDE 250 ML IV SCH ×2 (01:28→13:17)
[2020-10-08] MEDS: 0.9 % SODIUM CHLORIDE 10 ML SYRINGE IV SCH ×3 (05:51→20:56)
[2020-10-08 08:14] LABS: Basophils # (Auto) 0.03 K/mcL (0.00-0.20); Basophils % (Auto) 0.8 % (0.0-2.0); Eosinophils # (Auto) 0.38 K/mcL (0.00-0.70); Eosinophils % (Auto) 10.5 % (0.0-7.0); Hemoglobin 8.5 g/dL (13.5-16.5); Mean Platelet Volume 10.9 fL (7.4-10.4); Monocytes # (Auto) 0.53 K/mcL (0.10-0.90); Monocytes % (Auto) 14.7 % (1.0-12.0); Neutrophils % (Auto) 24.1 % (38.0-78.0); Platelet Count 87 K/mcL (140-440); RBC 2.38 M/mcL (4.50-5.90); Red Cell Distribution Width 13.1 % (11.5-14.5); WBC 3.6 K/mcL (4.5-11.0)
[2020-10-08 08:20] LABS: ALT/SGPT 39 U/L (<40); AST/SGOT 48 U/L (<40); Albumin/Globulin Ratio 1.2 (1.0-2.3); Alkaline Phosphatase 94 U/L (39-117); Bilirubin,Direct < 0.2 mg/dL (0-0.3); Bilirubin,Total 0.3 mg/dL (0.1-1.0); Blood Urea Nitrogen 37 mg/dL (8-23); Calcium 7.8 mg/dL (8.6-10.4); Carbon Dioxide 25 mmol/L (22-30); Chloride 94 mmol/L (96-108); Globulin 2.6 gm/dL (2.2-3.7); Glomerular Filtration Rate 7; Glucose 263 mg/dL (70-105); Lactate Dehydrogenase 648 U/L (135-225); Phosphorous 3.3 mg/dL (2.5-4.5); Triglycerides 351 mg/dL (<150); Uric Acid 3.2 mg/dL (2.5-8.0)
[2020-10-08] MEDS: INSULIN LISPRO 1 UNIT/0.01 ML UNIT SQ SCH ×4 (08:29→20:52)
[2020-10-08] MEDS: DOCUSATE SODIUM 100 MG CAPSULE PO SCH ×2 (08:30→20:52)
[2020-10-08] MEDS: BRINZOLAMIDE 1% LEFT EYE SCH ×2 (08:40→20:55)
[2020-10-08] MEDS: AURYXIA 210 MG PO SCH ×3 (08:40→17:55)
[2020-10-08] MEDS: OPTHALMIC LEFT EYE SCH ×2 (08:40→20:55)
[2020-10-08] MEDS: GABAPENTIN 300 MG CAPSULE PO SCH ×2 (08:40→20:51)
[2020-10-08] MEDS: ASPIRIN 81 MG TAB.CHEW PO SCH (08:41)
[2020-10-08] MEDS: LEVOTHYROXINE 75 MCG TABLET PO SCH (08:41)
[2020-10-08] MEDS: ESCITALOPRAM 20 MG TABLET PO SCH ×2 (08:41→20:51)
[2020-10-08] MEDS: LORATADINE 10 MG TABLET PO SCH (08:41)
[2020-10-08] MEDS ORDERED: MIDODRINE 5 MG TABLET PO PRN (08:46)
--- NOTE | 2020-10-08 08:46 | Nephrology Progress Note ---
SUBJECTIVE Subjective Patient information: Note initiated : 10/08/20 at 8:42 am Service Date, if different from initiated Date: [] Patient: Singh Singh 65 y/o M admitted on 10/07/20 for weakness. Chief Complaint: []Neck pain which started before this event. Not able to sleep No more chills. Constitutional Vitals: Vital Signs Temp Pulse Resp BP Pulse Ox 98.8 F 82 14 104/62 96 10/08/20 08:06 10/08/20 08:22 10/08/20 04:01 10/08/20 08:06 10/08/20 08:22 Period Temp Pulse Resp BP Sys/South Pulse Ox Last 24 Hr 90.9 F-98.9 F 58-82 7-30 102-146/29-103 90-100 Intake and Output 10/07/20 10/08/20 10/08/20 21:59 05:59 13:59 Intake Total 50 Output Total 1999 150 Balance -1950 -150 Weight 252 lb 8 oz Intake & Output: Intake & Output 10/07/20 10/08/20 10/08/20 21:59 05:59 13:59 Intake Total 50 Output Total 1999 150 Balance -1950 -150 Weight 252 lb 8 oz Intake: IV 50 Maxipime 0.5 gm In Dextrose 5% 50 in Water 50 ml @ 100 mls/hr IV DAILY@1800 [facility] Rx#:[id number] Oral 0 Output: Void Amount 150 Hemodialysis UF 2000 Other: Meal Dinner Percent of Meal Consumed 100% Feeding Ability Independent Urine Appearance Clear Urine Color Bright Yellow Stool Size Moderate Stool Color Brown Stool Consistency Formed # Bowel Movements 1 Head Head exam: Present atraumatic Neck Neck exam: Present normal inspection Cardiovascular Cardiovascular exam: Present diastolic murmur GI/Abdominal GI/Abdominal exam: Present soft Neurological Exam Neurological exam: Present alert A/P Assessment and plan (1) ESRD (end stage renal disease) on dialysis: Status: Acute Comment: Had dialysis yesterday. Will dialyse today to place him in his route schedule. Pancytopenia. Possible infection. The ultrasound of the fistula is negative for abscesses. blood cultures negative. Echo pending. labs and hemodynamics stable. Time Spent With Patient Time: Total time spent is greater than 50% in coordination of care (as documented) at patient's floor/unit and/or counseling patient:
[2020-10-08] MEDS ORDERED: VANCOMYCIN 1,000 MG in 0.9 % SODIUM CHLORIDE 250 ML IV ONE (09:00)
--- NOTE | 2020-10-08 09:08 | XRay Report ---
HISTORY: Weakness, atelectasis in both lung bases FINDINGS: The mild bibasilar atelectasis seen on the chest CT performed on 10/06/20 has nearly but not completely resolved. Mid and upper lung mcclelland are clear. The heart size is normal. There is no congestive heart failure. Sternal wires are present. There is a stent in the left subclavian artery. IMPRESSION: resolving bibasilar atelectasis Interpreted and Authenticated by: Octavio Hernandez 10/08/20
[2020-10-08] MEDS: HEPARIN 5,000 UNIT/ML VIAL SQ SCH ×2 (10:02→20:52)
[2020-10-08] MEDS: INSULIN ASPART SC SCH (10:03)
[2020-10-08] MEDS: [UNRECOGNIZED DRUG - OTHER] SC SCH (10:03)
[2020-10-08 11:02] LABS: Lymphocytes % (Auto) 49.9 % (15.0-49.0)
[2020-10-08] MEDS: CEFEPIME 0.5 GM in DEXTROSE 5% IN WATER 50 ML IV SCH (17:55)
[2020-10-08 19:05] LABS: Vancomycin,Random 8.2 ug/mL
[2020-10-08] MEDS ORDERED: VANCOMYCIN 1,500 MG in 0.9 % SODIUM CHLORIDE 500 ML IV ONE (19:45)
[2020-10-08] MEDS ORDERED: traZODone HCL 50 MG TABLET PO PRN (20:05)
[2020-10-08] MEDS: ATORVASTATIN 40 MG TABLET PO SCH (20:51)
[2020-10-08] MEDS: SENNOSIDES/DOCUSATE SODIUM 1 TAB TABLET PO SCH (20:52)
[2020-10-08] MEDS: LATANOPROST OPHTH DROPS 2.5ML BOTTLE OU SCH (20:54)
[2020-10-08] MEDS ORDERED: MELATONIN 3 MG TABLET PO SCH (21:00)
[2020-10-09] MEDS: 0.9 % SODIUM CHLORIDE 250 ML IV SCH (03:16)
[2020-10-09 07:18] LABS: Basophils # (Auto) 0.05 K/mcL (0.00-0.20); Basophils % (Auto) 0.9 % (0.0-2.0); Eosinophils # (Auto) 0.55 K/mcL (0.00-0.70); Eosinophils % (Auto) 9.9 % (0.0-7.0); Hematocrit 28.9 % (41.0-55.0); Hemoglobin 9.6 g/dL (13.5-16.5); Lymphocytes # (Auto) 3.12 K/mcL (1.50-4.80); Mean Cell Volume 104.3 fL (80.0-100.0); Mean Corpuscular HGB Conc 33.2 g/dL (31.0-36.0); Mean Platelet Volume 11.2 fL (7.4-10.4); Monocytes # (Auto) 0.73 K/mcL (0.10-0.90); Monocytes % (Auto) 13.2 % (1.0-12.0); Neutrophils % (Auto) 19.8 % (38.0-78.0); Platelet Count 107 K/mcL (140-440); RBC 2.77 M/mcL (4.50-5.90); Red Cell Distribution Width 13.1 % (11.5-14.5); WBC 5.6 K/mcL (4.5-11.0)
[2020-10-09] MEDS: 0.9 % SODIUM CHLORIDE 10 ML SYRINGE IV SCH ×2 (07:27→15:44)
[2020-10-09 07:47] LABS: ALT/SGPT 44 U/L (<40); AST/SGOT 53 U/L (<40); Albumin 3.4 gm/dL (3.2-5.2); Albumin/Globulin Ratio 1.3 (1.0-2.3); Alkaline Phosphatase 95 U/L (39-117); Bilirubin,Direct < 0.2 mg/dL (0-0.3); Bilirubin,Total 0.4 mg/dL (0.1-1.0); Blood Urea Nitrogen 18 mg/dL (8-23); Calcium 8.4 mg/dL (8.6-10.4); Carbon Dioxide 30 mmol/L (22-30); Chloride 98 mmol/L (96-108); Globulin 2.6 gm/dL (2.2-3.7); Glomerular Filtration Rate 11; Glucose 65 mg/dL (70-105); Lactate Dehydrogenase 559 U/L (135-225); Phosphorous 2.9 mg/dL (2.5-4.5); Triglycerides 240 mg/dL (<150); Uric Acid 2.3 mg/dL (2.5-8.0)
[2020-10-09] MEDS: INSULIN LISPRO 1 UNIT/0.01 ML UNIT SQ SCH ×2 (08:17→12:02)
[2020-10-09] MEDS: LEVOTHYROXINE 75 MCG TABLET PO SCH (08:21)
[2020-10-09] MEDS: AURYXIA 210 MG PO SCH ×2 (08:21→12:01)
[2020-10-09] MEDS: BRINZOLAMIDE 1% LEFT EYE SCH (08:39)
[2020-10-09] MEDS: GABAPENTIN 300 MG CAPSULE PO SCH (08:39)
[2020-10-09] MEDS: DOCUSATE SODIUM 100 MG CAPSULE PO SCH ×2 (08:39→08:40)
[2020-10-09] MEDS: OPTHALMIC LEFT EYE SCH (08:39)
[2020-10-09] MEDS: ASPIRIN 81 MG TAB.CHEW PO SCH (08:39)
[2020-10-09] MEDS: [UNRECOGNIZED DRUG - OTHER] SC SCH (08:41)
[2020-10-09] MEDS: INSULIN ASPART SC SCH (08:41)
[2020-10-09] MEDS: LORATADINE 10 MG TABLET PO SCH (08:43)
[2020-10-09] MEDS: ESCITALOPRAM 20 MG TABLET PO SCH (08:43)
[2020-10-09] MEDS: HEPARIN 5,000 UNIT/ML VIAL SQ SCH (09:24)
--- NOTE | 2020-10-09 09:48 | Nephrology Progress Note ---
SUBJECTIVE Subjective Patient information: Note initiated : 10/09/20 at 9:45 am Service Date, if different from initiated Date: [] Patient: Singh Singh 65 y/o M admitted on 10/07/20 for weakness. Chief Complaint: [] He feels a lot better, Constitutional Vitals: Vital Signs Temp Pulse Resp BP Pulse Ox 98.2 F 77 22 112/86 99 10/09/20 08:01 10/09/20 08:21 10/09/20 00:07 10/09/20 08:21 10/09/20 08:21 Period Temp Pulse Resp BP Sys/South Pulse Ox Last 24 Hr 97.3 F-98.8 F 54-80 16-28 61-141/30-96 92-100 Intake and Output 10/08/20 10/09/20 10/09/20 21:59 05:59 13:59 Intake Total 615 480 Output Total 1999 1 Balance -1385 -1 480 Weight 253 lb 9.6 oz Intake & Output: Intake & Output 10/08/20 10/09/20 10/09/20 21:59 05:59 13:59 Intake Total 615 480 Output Total 1999 1 Balance -1385 -1 480 Weight 253 lb 9.6 oz Intake: IV 615 Maxipime 0.5 gm In Dextrose 5% 50 in Water 50 ml @ 100 mls/hr IV DAILY@1800 [facility] Rx#:[id number] Vancomycin 1,500 mg In Sodium 500 Chloride 0.9% 500 ml @ 333.3 mls/hr IV ONCE ONE Rx#: [id number] Oral 480 Output: Void Amount 0 # of times incontinent of urine 1 Hemodialysis UF 1999 Other: Meal Breakfast Percent of Meal Consumed 100% Feeding Ability Independent Stool Size Moderate Stool Color Brown Stool Consistency Normal for Patient # Voids 1 Head Head exam: Present atraumatic and normal inspection Eye Eye exam: Present normal appearance ENT ENT exam: Present mucous membranes moist, normal exam and normal external ear exam Neck Neck exam: Present normal inspection Respiratory Respiratory exam: Present normal respiratory exam Cardiovascular Cardiovascular exam: Present normal rate and rhythm GI/Abdominal GI/Abdominal exam: Present normal bowel sounds Back Exam Back exam: Present normal inspection Neurological Exam Neurological exam: Present alert and oriented X3 Skin Skin exam: Present intact and warm A/P Assessment and plan (1) ESRD (end stage renal disease) on dialysis: Status: Acute Comment: Had dialysis yesterday. Will dialyse Tuesday his route schedule. It can be done as outpatient if he is discharged. Pancytopenia. Possible infection. The ultrasound of the fistula is negative for abscesses. blood cultures negative. Echo pending. Labs better. labs and hemodynamics stable. Time Spent With Patient Time: Total time spent is greater than 50% in coordination of care (as documented) at patient's floor/unit and/or counseling patient:
[2020-10-09 10:48] LABS: Lymphocytes % (Auto) 56.2 % (15.0-49.0)
--- NOTE | 2020-10-09 11:14 | Discharge Summary ---
Discharge Provider Provider Patient information: Note initiated : 10/09/20 at 11:12 am Service Date, if different from initiated Date: [] Patient: Singh Singh 65 y/o M admitted on 10/07/20 for weakness. Chief Complaint: [] Date of admission: 10/07/20 01:29 Discharge date: 10/09/20 Primary care physician: Nemesio Tamayo Consults: 10/07/20 01:31 Consult to Physician [CONS] Routine Comment: Consulting Provider: Rambo Collado Reason For Exam: Physician to Consult 10/07/20 07:40 Consult to Physician [CONS] Routine Comment: Consulting Provider: Lucio Lemus Reason For Exam: Physician to Consult Discharge Meds Discharge Medications Home Medications Auryxia 210 mg PO TIDCC 10/07/20 [History Confirmed 10/07/20 Last Taken Unknown] Folbee Plus 1 tab PO QDAY 10/07/20 [History Confirmed 10/07/20 Last Taken Unknown] Novolog U-100 Insulin aspart See Rx Instructions .ROUTE .COMPLEX 10/07/20 [History Confirmed 10/07/20 Last Taken Unknown] aspirin [Lou Chewable Aspirin] 81 mg PO DAILY 10/07/20 [History Confirmed 10/07/20 Last Taken Unknown] atorvastatin 40 mg PO HS 10/07/20 [History Confirmed 10/07/20 Last Taken Unknown] brimonidine 1 drp OPHTHALMIC (EYE) BID 10/07/20 [History Confirmed 10/07/20 Last Taken Unknown] brinzolamide 1 drp OPHTHALMIC (EYE) BID 10/07/20 [History Confirmed 10/07/20 Last Taken Unknown] cholecalciferol (vitamin D3) 125 mcg PO DAILY 10/07/20 [History Confirmed 10/07/20 Last Taken Unknown] escitalopram oxalate [Lexapro] 10 mg PO BID 10/07/20 [History Confirmed 10/07/20 Last Taken Unknown] ezetimibe 10 mg PO DAILY 10/07/20 [History Confirmed 10/07/20 Last Taken Unknown] gabapentin 600 mg PO BID 10/07/20 [History Confirmed 10/07/20 Last Taken Unknown] latanoprost 1 drp OPHTHALMIC (EYE) HS 10/07/20 [History Confirmed 10/07/20 Last Taken Unknown] levothyroxine 75 mcg PO DAILY 10/07/20 [History Confirmed 10/07/20 Last Taken Unknown] loratadine 10 mg PO QDAY 10/07/20 [History Confirmed 10/07/20 Last Taken 10/05/20] midodrine 5 mg PO PRN PRN 10/07/20 [History Confirmed 10/07/20 Last Taken Unknown] torsemide 100 mg PO DAILY 10/07/20 [History Confirmed 10/07/20 Last Taken Unknown] COURSE Hospital Course Hospital course: Mr. Singh is a 65 year old M with history of CABG/type 1 diabetes/history of purulent pericardial effusion/ESRD on hemodialysis currently on transplant list who presented to [facility] with 4 days onset of fever chills, nausea vomiting and diarrhea . Initial work-up was consistent with neutropenia of 1.8 along with systolics 70/40. Patient was started on antibiotic coverage after cultures were drawn. Nephrology was consulted as patient has missed his dialysis today. Following crystalloids patient's blood pressure improved to 106 x 45. Case was discussed with nephrology and recommended transfer to tertiary center. Patient was subsequently transferred to [facility] ED where he was treated with antibiotics along with crystalloids. Patient started feeling a lot better and remained lucid. No further episode of diarrhea. Covid test negative. CT chest abdomen pelvis no acute process. The patient was admitted for further management. 10/07-patient doing better this morning. Not requiring pressors. Hemodynamic stable with systolics of 100. ANC remains critical at 680 with eosinophil at 21% however normal absolute eosinophil number, cultures negative so far. Hemodialysis today. Check peripheral blood smear. 10/08-ANC slightly modestly improved, no source of infection identified yet but patient feels much better now, continued on IV antibiotics, vitamin B12 elevated, platelets declining-held heparin SQ. ECHO pending. US fistula did now show any possible infectious source. Peripheral blood smear report did not comment on findings that would suggest malignancy. 10/09-ANC today 1.1, continues to improve. Blood cultures at [facility] continue to show no growth to date, reaching out to outside hospital ([place]) for results on blood cultures drawn prior to transfer are also showing no growth to date. With no bacterial cause of neutropenia antibiotics discontinued. It is possible that an unidentified viral infection caused neutropenia. No recent suspicious drugs and the patient does not have rheumatologic diagnosis to explain this and no new symptoms to suggest that. It is possible this represents an early myelodysplastic process, he will need to be followed closely with consideration of hematologic workup including bone marrow biopsy is neutropenia does not resolve. Post hospital follow up; -Repeat CBC w/ diff to follow absolute neutrophil count, hemoglobin, and platelets. -If absolute neutrophil count does not recover to normal I recommend a hematology referral. Head: Atraumatic, normal inspection. Eyes: normal appearance, no scleral icterus. Neck: full ROM Respiratory: no respiratory distress. Cardiovascular: normal rate and rhythm, S1, S2. GI/Abdominal: soft, nontender, no guarding. Extremities: Left AV fistula, full range of motion, nontender. Neurological: CN II-XII intact, intact motor, intact sensation. Psychiatric: normal mood. Skin: warm, normal color Discharge diagnosis: Neutropenia of uncertain etiology Secondary discharge diagnosis: Possible sepsis Pancytopenia Proportionate increase in eosinophil without absolute increase ESRD Diabetes mellitus Hypothyroidism Neuropathy Obstructive sleep apnea Reason for admission: Possible sepsis Time Spent with Patient Time attestation: Total time spent providing and/or coordinating discharge services: EXAM Constitutional Vitals: Temp Pulse Resp BP Pulse Ox 98.2 F 64 22 113/39 100 10/09/20 08:01 10/09/20 09:35 10/09/20 00:07 10/09/20 09:35 10/09/20 09:35 Discharge Data Data Completed and Pending Labs on day of discharge: Labs from last 24 hours 10/09/20 10/09/20 10/08/20 05:10 05:10 17:37 WBC 5.6 RBC 2.77 L Hgb 9.6 L Hct 28.9 L MCV 104.3 H MCH 34.7 H MCHC 33.2 RDW 13.1 Plt Count 107 L MPV 11.2 H Neut % (Auto) 19.8 L Lymph % (Auto) 56.2 H Sampson % (Auto) 13.2 H Eos % (Auto) 9.9 H Baso % (Auto) 0.9 Lymph # (Auto) 3.12 Sampson # (Auto) 0.73 Eos # (Auto) 0.55 Baso # (Auto) 0.05 Absolute Neutrophils 1.10 L Sodium 136 Potassium 4.1 Chloride 98 Carbon Dioxide 30 Anion Gap 8.0 BUN 18 Creatinine 4.9 H GFR Calculation 11 Glucose 65 L Uric Acid 2.3 L Calcium 8.4 L Phosphorus 2.9 Magnesium 1.9 Total Bilirubin 0.4 Direct Bilirubin < 0.2 GGT 19 AST 53 H ALT 44 H Alkaline Phosphatase 95 Lactate Dehydrogenase 559 H Total Protein 6.0 Albumin 3.4 Globulin 2.6 Albumin/Globulin Ratio 1.3 Triglycerides 240 H Random Vancomycin 8.2 Preliminary micro results at discharge 10/07/20 02:00 Blood Culture - Preliminary Blood 10/07/20 15:50 Blood Culture - Preliminary Blood 10/07/20 15:40 Blood Culture - Preliminary Blood Discharge Plan Patient/Caregiver Discharge Instructions Activity: increase activity as tolerated Instructions: Heart Failure (GEN), Acute Kidney Injury (GEN), Sepsis (GEN), Neutropenia (GEN), Hypoxia (GEN) Activity Restrictions/Additional Instructions: This discharge packet is provided to you to help keep you informed about your care. We want to ensure you get everything you need when you go home. You will also be receiving a call from us in a few days to follow up with you and see how you are doing since your discharge. This gives us a chance to listen to any concerns you maybe experiencing since you were discharged or any additional needs you may have, as well as providing us feedback on your care experience. We strive to always provide excellent care and thank you for your feedback and for choosing [facility]. Prescriptions: Continued Folbee Plus 5 mg Tablet 1 tab PO QDAY RF: 0 brinzolamide 1 % Drops,Suspension 1 drp OPHTHALMIC (EYE) BID RF: 0 torsemide 100 mg Tablet 100 mg PO DAILY RF: 0 levothyroxine 50 mcg Tablet 75 mcg PO DAILY RF: 0 gabapentin 300 mg Capsule 600 mg PO BID RF: 0 aspirin [Lou Chewable Aspirin] 81 mg Tablet,Chewable 81 mg PO DAILY RF: 0 midodrine 10 mg Tablet 5 mg PO PRN PRN (Reason: Hypotension) RF: 0 escitalopram oxalate [Lexapro] 20 mg Tablet 10 mg PO BID RF: 0 ezetimibe 10 mg Tablet 10 mg PO DAILY RF: 0 cholecalciferol (vitamin D3) 125 mcg (5,000 unit) Tablet 125 mcg PO DAILY RF: 0 latanoprost 0.005 % Drops, Emulsion 1 drp OPHTHALMIC (EYE) HS RF: 0 Novolog U-100 Insulin aspart See Rx Instructions .ROUTE .COMPLEX RF: 0 brimonidine 0.2 % drops 1 drp OPHTHALMIC (EYE) BID RF: 0 Auryxia 210 mg iron tablet 210 mg PO TIDCC RF: 0 atorvastatin 40 mg tablet 40 mg PO HS RF: 0 loratadine 10 mg Tablet 10 mg PO QDAY RF: 0 Follow Up Plan Follow up with: Davie Bradley MD [Physician] - 10/14/20 11:00 am (This will be a telephone appointment) Rambo Collado MD [Physician] - (Continue to follow with your current schedule) Patient Disposition: Home, Self-Care Rehab Potential: Fair Overall status at discharge: patient is progressing back to baseline Discharge Orders: Discharge Order (Routine); Ordered 10/09/20 Ordered By: Delio PETER VTE Deep Vein Thrombosis/Pulmonary Embolism Present on Admission: No
== END 2020-10-09 15:36 | disposition home or self-care (01) | DRG 871 ==
LOC: ED 18:01 → ICU 10-07 01:28
PROVIDERS: ADMIT Internal Medicine; ATTEND Internal Medicine